=== PATIENT | female | born 1945 | race Caucasian/White ===

== ENCOUNTER → 2017-11-16 | Outpatient (CLI) | payer OTHER | END | disposition home or self-care (01) | LOC: LAB 12:32 | DX: N28.1 Cyst of kidney, acquired (principal); Z51.81 Encounter for therapeutic drug level monitoring ==

== ENCOUNTER → 2017-11-26 | Outpatient (CLI) | payer OTHER | END | disposition home or self-care (01) | LOC: MRI 08:58 | DX: N28.1 Cyst of kidney, acquired (principal) | CPT/HCPCS: 74183; A9579 ==

== ENCOUNTER 2022-05-20 09:48 | Outpatient (CLI) | payer OTHER | END 2022-05-20 10:01 | disposition home or self-care (01) | LOC: MAMO-SONO 09:48 | PROVIDERS: ATTEND General Practice | DX: R07.9 Chest pain, unspecified (principal); N64.59 Other signs and symptoms in breast ==

== ENCOUNTER 2023-06-11 08:24 | Outpatient (CLI) | payer OTHER | END 2023-06-11 08:26 | disposition home or self-care (01) | LOC: NUCLEAR 08:24 | PROVIDERS: ATTEND Surgery | DX: I73.9 Peripheral vascular disease, unspecified (principal) ==

== ENCOUNTER 2023-06-12 08:54 | Outpatient (CLI) | payer OTHER | END 2023-06-12 08:55 | disposition home or self-care (01) | LOC: NUCLEAR 08:54 | PROVIDERS: ATTEND Surgery | DX: I87.2 Venous insufficiency (chronic) (peripheral) (principal) ==